=== PATIENT | female | born 1970 | race Caucasian/White ===

== ENCOUNTER 2016-06-25 20:59 | Emergency (ER) | payer OTHER ==
[~2016-06-25] VITALS: Ht 160 cm; Wt 81.5 kg
[2016-06-25 21:05] VITALS: Ht 160 cm; Wt 81.5 kg
[2016-06-25] MEDS ORDERED: AMOX1TAB10 PO (21:40)
[2016-06-25] MEDS ORDERED: IBUP-1542 PO (21:40)
--- NOTE | 2016-06-25 21:52 | ERD ---
ER Documentation Chief Complaint Date/Time DATE: 06/25/16 TIME: 21:48 Chief Complaint right thumb cat bite since yesterday, not her cat. HPI This is a 46-year-old female presents to the ER with a Bite to her right thumb. Patient got bitten by That was not hers yesterday. Patient denies any fevers or chills. She however does have redness and pain to her right thumb. She denies any numbness or tingling to arm. She denies any nausea vomiting, confusion, seizures. Patient received her last TD Shot 12 years ago. ROS 12 point review of systems was done, all negative except per HPI. Medications Home Meds Active Scripts Ibuprofen* (Motrin*) 600 Mg Tab, 600 MG PO Q6, #30 TAB Prov:AMINTA DONALDSON 06/25/16 Amoxicillin/Potassium Clav (Amox-Clav 875-125 mg Tablet) 875-125 mg Tab, 1 TAB PO BID for 7 Days, #14 TAB Prov:AMINTA DONALDSON 06/25/16 Allergies Allergies: Coded Allergies: latex (Unverified Allergy, Unknown, 06/25/16) Physical Exam Vitals Vital Signs Date Time Temp Pulse Resp B/P Pulse Ox O2 Delivery O2 Flow Rate FiO2 06/25/16 21:05 98.0 72 20 131/63 99 Physical Exam GENERAL: The patient is well developed and appropriate for usual state of health , in no apparent distress. HEENT: Atraumatic. CHEST: Clear to auscultation bilaterally. There are no rales, wheezes or rhonchi. HEART: Regular rate and rhythm. No murmurs, clicks, rubs or gallops. EXTREMITIES: Right thumb: Right thumb is erythematous and is tender to palpation along the dorsal aspect of the thumb. Patient has full range of motion of her thumb at all joints. DTS, DTP are intact. Radial ulnar medial nerve are intact. NEURO: Alert and oriented. Procedures/MDM This is a 46-year-old female that presents to the ER for a Bite. Patient was seen and evaluated in the flu track. Patient will be given antibiotics for her Bite as she does have some redness and pain. At this time suspicion for flexor tenosynovitis is low. Patient has full range of motion of her thumb. Sensations are intact. I discussed the possibility of getting a TD Shots, however patient would prefer to get TD shot with her primary care doctor as there is a long wait in the ER. I thoroughly discussed signs and symptoms and the risk of rabies infection. Patient's understands the risks versus benefit. My medical decision making was shared with the patient she understands and agrees with plan. Patient is afebrile and well-appearing. She will be sent home with Augmentin and ibuprofen. Patient urgently needs to follow up with the primary care doctor or return to ER sooner if symptoms worsen. Departure Diagnosis: Primary Impression: Cat bite Condition: Stable Patient Instructions: Cat Bite Additional Instructions: Call your primary care doctor TOMORROW for an appointment during the next 1-2 days.See the doctor sooner or return here if your condition worsens before your appointment time. PLEASE SEE YOUR PCP SOON POSSIBLE FOR TDAP SHOT! AMINTA DONALDSON Jun 25, 2016 21:52
== END 2016-06-25 21:41 | disposition home or self-care (01) ==
LOC: E/R 20:59
DX: S61.051A Open bite of right thumb without damage to nail, initial encounter (principal); W55.01XA Bitten by cat, initial encounter; Y92.9 Unspecified place or not applicable; Z91.040 Latex allergy status
CPT/HCPCS: 99283

== ENCOUNTER 2016-06-27 21:31 | Emergency (ER) | payer OTHER ==
[~2016-06-27] VITALS: Ht 162.6 cm; Wt 82.5 kg
[~2016-06-27 21:31] MED LIST: AMOX1TAB10 PO; IBUP-1542 PO
[2016-06-27 21:36] VITALS: Ht 162.6 cm; Wt 82.5 kg
--- NOTE | 2016-06-27 23:17 | ERD ---
ER Documentation Chief Complaint Date/Time DATE: 06/27/16 TIME: 23:15 Chief Complaint requesting tetanus shot for cat bite 2 days ago HPI 46-year-old female had a cat bite on her right thumb 2 days ago and comes emergency room for a tetanus shot. Patient states that her previous visit, she was not able to wait 3 hours with a tetanus shot and wanted to go see her primary care doctor for it however her PCP said that it would be at least a week before she would be able to see her. She has no drainage, erythema or fevers. She has been taking Augmentin for this. Her last tetanus shot was at least 10 years ago. ROS All systems reviewed and are negative except as per history of present illness. Medications Home Meds Active Scripts Ibuprofen* (Motrin*) 600 Mg Tab, 600 MG PO Q6, #30 TAB Prov:AMINTA DONALDSON 06/25/16 Amoxicillin/Potassium Clav (Amox-Clav 875-125 mg Tablet) 875-125 mg Tab, 1 TAB PO BID for 7 Days, #14 TAB Prov:AMINTA DONALDSON 06/25/16 Allergies Allergies: Coded Allergies: latex (Unverified Allergy, Unknown, 06/25/16) PMhx/Soc Medical and Surgical Hx: pt denies Medical Hx History of Surgery: Yes (OVARIAN CYST SX 97, RIGHT FOOT SX99, RIGHT FOOT BONE SPUR 05) Anesthesia Reaction: No Hx Neurological Disorder: No Hx Respiratory Disorders: No Hx Cardiac Disorders: No Hx Psychiatric Problems: No Hx Miscellaneous Medical Probl: No Hx Alcohol Use: Yes (SOCIALLY) Hx Substance Use: No Hx Tobacco Use: Yes (1/2PACK/DAY) Smoking Status: Current every day smoker Physical Exam Vitals Vital Signs Date Time Temp Pulse Resp B/P Pulse Ox O2 Delivery O2 Flow Rate FiO2 06/27/16 21:36 98.3 81 20 120/67 100 Physical Exam General: Well-developed, well-nourished. The patient appears in no acute distress. HEENT: Head is normocephalic, atraumatic. No scleral icterus. Neck: Supple. Nontender. Lungs: Clear to auscultation. Normal air movement. Heart: Regular rate and rhythm. S1 and S2 are normal. No murmurs, gallops, or rubs. Abdomen: Nondistended. Extremities: 2 small cat bite wounds on the right thumb on the lateral and medial aspect, there is no erythema, drainage or swelling. Right thumb has full range of motion with flexion and extension. Neurologic: Alert and oriented 3. No focal deficits. Normal speech and gait. Skin: Normal turgor. No rash or lesions. Results 24 hrs Current Medications Medications (Trade) Dose Ordered Sig/Shantelle Route PRN Reason Start Time Stop Time Status Last Admin Dose Admin Diphtheria/ Tetanus/Acell Pertussis (Adacel) 0.5 ml ONCE ONCE IM* 06/27/16 23:30 06/27/16 23:31 Procedures/MDM 46-year-old female comes in with a cat bite, patient's tetanus is updated today. She has no evidence of tenosynovitis, infection, cellulitis, abscess. Departure Diagnosis: Primary Impression: Need for Tdap vaccination Additional Impressions: Encounter for medication management Cat bite Condition: Good Patient Instructions: Cat Bite, Tetanus Immunization And F/U BONITA BEARDEN PA-C Jun 27, 2016 23:17
[2016-06-27 23:25] VITALS: BP 119/74; PULSE 62; RESP 18; TEMP 98.4
[2016-06-27] MEDS ORDERED: DIPHTH/TET/ACEL PERTUSS (ADULT) 0.5 ML VIAL IM* ONE (23:30)
== END 2016-06-28 00:01 | disposition home or self-care (01) ==
LOC: FTE 21:31
DX: S61.051D Open bite of right thumb without damage to nail, subsequent encounter (principal); F17.210 Nicotine dependence, cigarettes, uncomplicated; W55.01XD Bitten by cat, subsequent encounter
CPT/HCPCS: 90471; 90715

== ENCOUNTER 2016-10-10 21:18 | Emergency (ER) | payer SELFPAY ==
[~2016-10-10] VITALS: Ht 162.6 cm; Wt 81.5 kg
[2016-10-10 21:21] VITALS: Ht 162.6 cm; Wt 81.5 kg
== END 2016-10-10 23:33 | disposition left against medical advice (07) ==
LOC: FTE 21:18
DX: Z53.21 Procedure and treatment not carried out due to patient leaving prior to being seen by health care provider (principal)

== ENCOUNTER 2017-04-02 19:27 | Emergency (ER) | payer OTHER ==
[~2017-04-02] VITALS: Ht 167.6 cm; Wt 80.9 kg
[2017-04-02 19:58] VITALS: Ht 167.6 cm; Wt 80.9 kg
[2017-04-02] MEDS ORDERED: IBUPROFEN 800 MG TAB PO ONE (22:30)
--- NOTE | 2017-04-02 22:58 | ERD ---
ER Documentation Chief Complaint Date/Time DATE: 04/02/17 TIME: 22:54 Chief Complaint S/P FALL. C/O LT KNEE AND RIGHT FOOT PAIN. HURTS TO BEAR WEIGHT HPI This is a 46year-old female who presents the emergency department today complaining of left knee and right ankle pain after missing some stairs and falling earlier this evening. 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 States she is having pain with weightbearing. States she has not taken any medication for the pain. Denies any fevers or chills ROS All systems reviewed and are negative except as per history of present illness. Medications Home Meds Active Scripts Acetaminophen* (Tylophen*) 500 Mg Capsule, 1 CAP PO Q6H Y for PAIN AND OR ELEVATED TEMP, #30 CAP Prov:JOSEFINA MAHAN PA-C 04/02/17 Naproxen* (Naprosyn*) 500 Mg Tablet, 500 MG PO BID Y for PAIN AND/OR INFLAMMATION, #30 TAB Prov:JOSEFINA MAHAN PA-C 04/02/17 Tramadol HCl (Tramadol HCl) 50 Mg Tablet, 50 MG PO Q4 Y for PAIN, #20 TAB Prov:JOSEFINA MAHAN PA-C 04/02/17 Ibuprofen* (Motrin*) 600 Mg Tab, 600 MG PO Q6, #30 TAB Prov:AMINTA DONALDSON 06/25/16 Amoxicillin/Potassium Clav (Amox-Clav 875-125 mg Tablet) 875-125 mg Tab, 1 TAB PO BID for 7 Days, #14 TAB Prov:AMINTA DONALDSON 06/25/16 Allergies Allergies: Coded Allergies: iodine (Verified Allergy, Severe, 04/02/17) latex (Unverified Allergy, Unknown, 04/02/17) PMhx/Soc History of Surgery: Yes (OVARIAN CYST SX 97, RIGHT FOOT SX99, RIGHT FOOT BONE SPUR 05) Anesthesia Reaction: No Hx Neurological Disorder: No Hx Respiratory Disorders: No Hx Cardiac Disorders: No Hx Psychiatric Problems: No Hx Miscellaneous Medical Probl: No Hx Alcohol Use: Yes (SOCIALLY) Hx Substance Use: Yes (uses coccaine every 2-3 years per pt) Hx Tobacco Use: Yes (1/2PACK/DAY) Smoking Status: Current some day smoker Physical Exam Vitals Vital Signs Date Time Temp Pulse Resp B/P Pulse Ox O2 Delivery O2 Flow Rate FiO2 04/02/17 19:58 98.9 90 20 125/74 98 Physical Exam Const: sitting in wheelchair, NAD Head: Atraumatic Eyes: Normal Conjunctiva ENT: Normal External Ears, Nose and Mouth. Neck: Full range of motion..~ No meningismus. Resp: Clear to auscultation bilaterally Cardio: Regular rate and rhythm, no murmurs Abd: Soft, non tender, non distended. Normal bowel sounds Skin: Abrasion left knee MSK left knee with no obvious deformity. No effusion. No ecchymosis. Full active range of motion. Diffusely tender to palpation. Right ankle with no obvious deformity. No effusion. No ecchymosis. Diffusely tender to palpation on lateral malleolus. Nontender navicular. Nontender base of the fifth metatarsal. Unable to assess range of motion secondary to pain. Pulses 2+. Distal neurovascularly intact. Neur: Awake and alert Psych: Normal Mood and Affect Results 24 hrs Current Medications Medications (Trade) Dose Ordered Sig/Shantelle Route PRN Reason Start Time Stop Time Status Last Admin Dose Admin Ibuprofen (Motrin) 800 mg ONCE ONCE PO 04/02/17 22:30 04/02/17 22:31 DC 04/02/17 22:49 DIAGNOSTIC IMAGING REPORT Patient: KARINA FONSECA : 1970 Age: 46 Sex: F MR #: [id number] DOS: 04/02/17 0000 Ordering MD: JOSEFINA MAHAN PA-C Location: [facility] Room/Bed: PROCEDURE: XR right ankle. CLINICAL INDICATION: Status post fall with lateral right ankle pain TECHNIQUE: AP , oblique and lateral views of the right ankle were performed. COMPARISON: None. FINDINGS: There is normal mineralization and alignment. No fracture or osseous lesion is identified. The ankle mortis and talar dome are intact. The soft tissues are unremarkable. Postoperative changes of the metatarsal of the great toe compatible osteotomy and internal fixation are noted. RPTAT:HUBERT IMPRESSION: Unremarkable right ankle series. Physician Chris Date Time Electronically viewed and signed by Physician Chris on 04/02/2017 23:16 JR/ CC: JOSEFINA MAHAN PA-C DIAGNOSTIC IMAGING REPORT Patient: KARINA FONSECA : 1970 Age: 46 Sex: F MR #: [id number] DOS: 04/02/17 0000 Ordering MD: JOSEFINA MAHAN PA-C Location: [facility] Room/Bed: PROCEDURE: XR Knee. CLINICAL INDICATION: Post traumatic lateral left knee pain TECHNIQUE: AP, lateral and tunnel views of the left knee were obtained. COMPARISON: None. FINDINGS: No fracture or osseous lesion is identified. There is no evidence for dislocation. Mineralization is within normal limits. Joint spaces are preserved. No evidence of effusion or soft tissue swelling is identified. RPTAT:HJJR IMPRESSION: Unremarkable left knee. Physician Chris Date Time Electronically viewed and signed by Physician Chris on 04/02/2017 23:16 JR/ CC: JOSEFINA MAHAN PA-C Procedures/MDM This 46-year-old female who presents to the emergency department today complaining of left knee and right ankle pain after sustaining a mechanical fall earlier today while she was caring a massage table and missed some steps. Given patient's trauma and pain with emulation I did obtain images. Per the radiology report images of the right ankle are unremarkable. Ankle mortise and talar dome are intact. Soft tissues are unremarkable. There are postoperative changes of the metatarsal of the great toe compatible with osteotomy and internal fixation is noted. There is normal mineralization and alignment. Images of the left knee are unremarkable. There is no acute fracture dislocation. There is no evidence of effusion or soft tissue swelling. Symptoms at this time is consistent with sprain versus strain versus contusion. I have explained this to the patient. Patient was given a knee immobilizer and Geovani wrap for comfort. She is distally neurovascularly intact pre-and post knee immobilizer application. She was also given crutches to help ambulate Patient was given Motrin here in the emergency department and she declined narcotics here in the emergency department stating that she would prefer to take them at home. Patient will be given a prescription for short course of tramadol, Naprosyn and Tylenol for home At this time the patient is stable for discharge and outpatient management. Patient should follow up with their PCP in the next 1-2 days. They may return to the emergency department sooner for any persistent or worsening of symptoms. Patient understood and agreed with the plan. Departure Diagnosis: Primary Impression: Fall Encounter type: initial encounter Qualified Code: W19.XXXA - Fall, initial encounter Additional Impression: Knee injury Encounter type: initial encounter Laterality: left Qualified Code: S89.92XA - Injury of left knee, initial encounter Condition: Fair JOSEFINA MAHAN PA-C Apr 02, 2017 22:58
--- NOTE | 2017-04-02 23:16 | RADRPT ---
PROCEDURE: XR right ankle. CLINICAL INDICATION: Status post fall with lateral right ankle pain TECHNIQUE: AP , oblique and lateral views of the right ankle were performed. COMPARISON: None. FINDINGS: There is normal mineralization and alignment. No fracture or osseous lesion is identified. The ankle mortis and talar dome are intact. The soft tissues are unremarkable. Postoperative changes of the m etatarsal of the great toe compatible osteotomy and internal fixation are noted. RPTAT:HJJR IMPRESSION: Unremarkable right ankle series. Physician Chris Date Time Electronically viewed and signed by Physician Chris on 04/02/2017 23:16 /
--- NOTE | 2017-04-02 23:17 | RADRPT ---
PROCEDURE: XR Knee. CLINICAL INDICATION: Post traumatic lateral left knee pain TECHNIQUE: AP, lateral and tunnel views of the left knee were obtained. COMPARISON: None. FINDINGS: No fracture or osseous lesion is identified. There is no evidence for dislocation. Mineralization is within normal limits. Joint spaces are preserved. No evidence of effusion or soft tissue swelli ng is identified. RPTAT:HJJR IMPRESSION: Unremarkable left knee. Physician Chris Date Time Electronically viewed and signed by Physician Chris on 04/02/2017 23:16 JR/
[2017-04-02] MEDS ORDERED: ACET500C5 PO (23:29)
[2017-04-02] MEDS ORDERED: TRAM50TA2 PO (23:29)
[2017-04-02] MEDS ORDERED: NAPR-260 PO (23:29)
== END 2017-04-03 00:13 | disposition home or self-care (01) ==
LOC: FTE 19:27
DX: S89.92XA Unspecified injury of left lower leg, initial encounter (principal); F17.210 Nicotine dependence, cigarettes, uncomplicated; W10.9XXA Fall (on) (from) unspecified stairs and steps, initial encounter; Y92.9 Unspecified place or not applicable
CPT/HCPCS: 73562